=== PATIENT | female | born 1975 | race Caucasian/White ===

== ENCOUNTER 2017-01-20 11:24 | Emergency (ER) | payer BC, MEDICAID, OTHER ==
--- NOTE | 2017-01-20 12:24 | EDM.PDOC ---
ED HPI Trauma - General Chief Complaint: Lower Extremity Injury/Pain Stated Complaint: LT LEG/SWOLLEN/TINGLING Time Seen by Provider: 01/20/17 12:15 Source: Reports: Patient History Limitations: Reports: No limitations - History of Present Illness INITIAL COMMENTS - FREE TEXT/NARRATIVE: This 41 yo female patient reports to the ED with swelling of her right leg. The patient reports she woke up this morning and noticed the swelling. The patient also reports some tingling in her left lower extremity. The patient reports she was on a trip to [place] about 2 weeks ago and does not live a very active life. The patient does report a previous ruptured vein in her left lower leg with a clot. The patient denies any trauma, falls or chronic back issues. Symptom Onset Date: 01/20/17 Occurred When: this morning Occurred Where: home Method of Injury: unknown Severity: moderate Pain/Injury Location: Reports: lower extremity, left Consciousness: Reports: no loss of consciousness Associated Symptoms: Reports: no other symptoms Allergies/ADRs: Allergies promethazine HCl [From Phenergan] Allergy (Verified 03/31/15 19:25) Hives Home Medications: Ambulatory Orders Multivitamin with Minerals [Multiple Vitamin] 1 tab PO DAILY 03/31/15 [ Confirmed 03/31/15] Past Medical History - Past Health History Medical/Surgical History: Denies Medical/Surgical History Social & Family History - Tobacco Use Smoking Status *Q: Never Smoker - Recreational Drug Use Recreational Drug Use: No Review of Systems - Review of Systems Review Of Systems: ROS reveals no pertinent complaints other than HPI. Trauma Exam - Physical Exam Exam: See Below Exam Limited By: No limitations General Appearance: Reports: alert, WD/WN, mild distress Head: Reports: atraumatic, normocephalic Eyes: bilateral eye: EOMI, normal inspection, PERRL Ears: Reports: normal external exam, normal canal, hearing grossly normal, normal TMs Nose: Reports: normal inspection, normal mucousa, no blood Throat/Mouth: Reports: Normal inspection, Normal lips, Normal teeth, Normal gums , Normal oropharynx, Normal voice, No airway compromise Neck: Reports: non-tender, full range of motion, normal alignment, normal inspection Respiratory Exam: Reports: no respiratory distress, lungs clear, normal breath sounds Cardiovascular: Reports: normal peripheral pulses, regular rate, rhythm, no edema, no gallop, no JVD, no murmur, no rub GI/Abdominal: Reports: normal bowel sounds, soft, non tender, no organomegaly, no distention, no abnormal bruit, no mass (Female) Exam: Deferred Rectal (Female) Exam: Deferred Back: Reports: full range of motion, normal inspection, non-tender Extremities: Reports: no evidence of injury, normal range of motion, non-tender , no pedal edema, pelvis stable 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, no motor/sensory deficits, alert , normal mood/affect, oriented x 3 Skin: Reports: Normal color, Warm/dry - Bhupinder Coma Score Best Eye Response ([place]): (4) open spontaneously Best Verbal Response (Bhupinder): (5) oriented Best Motor Response (Bhupinder): (6) obeys commands Bhupinder Total: 15 Course - Vital Signs Last Recorded V/S: Last Vital Signs Temp 36.7 C 01/20/17 12:55 Pulse 102 H 01/20/17 12:55 Resp 18 01/20/17 12:55 BP 145/91 H 01/20/17 12:55 Pulse Ox 99 01/20/17 12:55 - Orders/Labs/Meds Orders: Active Orders 24 hr Category Date Time Status Heparin Sodium/D5W [Heparin 25,000 Units in D5W 500 ML] Med 01/20/17 14:15 Active 25,000 units in 500 ml IV TITRATE Medication Orders Heparin Sodium/Dextrose (Heparin 25,000 Units In D5w 500 Ml) 25,000 units in 500 mls @ 40.823 mls/hr IV TITRATE RAY; 18 UNITS/KG/HR PRN Reason: Protocol Labs: Laboratory Tests 01/20/17 01/20/17 01/20/17 Range/Units 12:25 12:25 12:25 WBC 13.7 H (5.0-10.0) 10^3/uL RBC 5.13 (4.2-5.4) 10^6/uL Hgb 14.8 (12.0-16.0) g/dL Hct 43.9 (37.0-47.0) % MCV 85.6 (80-100) fL MCH 28.8 (27.0-34.0) pg MCHC 33.7 (33.0-35.0) g/dL Plt Count 331 (150-450) 10^3/uL Neut % (Auto) 80.7 H (42.2-75.2) % Lymph % (Auto) 11.7 L (20.5-50.1) % Vance % (Auto) 5.8 (2-8) % Eos % (Auto) 1.5 (1.0-3.0) % Baso % (Auto) 0.3 (0.0-1.0) % PT 9.9 (9.0-12.0) SEC INR 1.0 (0.9-1.2) D-Dimer, Quantitative 4070 H (0-400) ng/mL Sodium 139 (138-146) mmol/L Potassium 4.4 (3.5-4.9) mmol/L Chloride 100 (98-109) mmol/L Carbon Dioxide 26 (24-29) mmol/L Anion Gap 17.4 BUN 13 (8-26) mg/dL Creatinine 0.6 (0.6-1.3) mg/dL Est Cr Clr Drug Dosing 126.99 mL/min Estimated GFR (MDRD) > 60 BUN/Creatinine Ratio 21.66 Glucose 96 (70-105) mg/dL Calcium Total Bilirubin 0.4 (0.2-1.0) mg/dL AST 20 (10-42) IU/L ALT 23 (10-60) IU/L Alkaline Phosphatase 77 (42-121) IU/L Total Protein 7.2 (6.7-8.2) g/dl Albumin 3.9 (3.2-5.5) g/dl Globulin 3.3 Albumin/Globulin Ratio 1.18 Meds: Medications Generic Name Dose Route Start Last Admin Trade Name Freq PRN Reason Stop Dose Admin Heparin Sodium/Dextrose 25,000 units in 500 mls @ 40.823 mls/hr 01/20/17 14: 15 Heparin 25,000 Units In D5w 500 Ml IV TITRATE RAY Protocol 18 UNITS/KG/HR Departure - Departure Time of Disposition: 14:20 Disposition: DC/Tfer to Acute Hospital 02 Condition: fair Clinical Impression: DVT (deep venous thrombosis) Qualifiers: DVT location: lower extremity Affected thrombotic vein of extremity: iliac Laterality: left Chronicity: acute Qualified Code(s): I82.422 - Acute embolism and thrombosis of left iliac vein Forms: Interfacility Transfer EMTALA Care Plan Goals: Discussed the examination, lab and ultrasound results with Dr. Richmond. Dr. Richmond accepted the patient for continued evaluation and management. The patient will be transported by [facility]. - My Orders Last 24 Hours: My Active Orders 01/20/17 14:15 Heparin Sodium/D5W [Heparin 25,000 Units in D5W 500 ML] 25,000 units in 500 ml IV TITRATE - Assessment/Plan Last 24 Hours: My Active Orders 01/20/17 14:15 Heparin Sodium/D5W [Heparin 25,000 Units in D5W 500 ML] 25,000 units in 500 ml IV TITRATE
[2017-01-20 13:28] LABS: CHLORIDE,CL 100 mmol/L (98-109)
[2017-01-20 13:29] LABS: SODIUM,NA 139 mmol/L (138-146)
--- NOTE | 2017-01-20 13:44 | US ---
Clinical history: 41-year-old obese female smoker who had a recent road trip ([place]) 2 weeks ago and presents now with acute onset of left lower extremity swelling this morning. Rule out DVT. Interpretation: Abnormal. Extensive intraluminal echogenic thrombus and noncompressible deep veins of the left groin, thigh an d an knee without augmentation and venous flow in the left popliteal, superficial and common femoral veins. No Porter's cyst. CONCLUSION: Extensive, and significant, deep vein thrombosis left lower extremity.
[2017-01-20] MEDS ORDERED: Heparin Sodium/D5W 25,000 UNITS/500 ML BAG IV SCH (14:15)
[2017-01-20 14:24] VITALS: BP 141/83
[2017-01-20] MEDS ORDERED: Heparin Sodium 5,000 Units/ML Vial ONE (14:25)
== END 2017-01-20 15:17 ==
LOC: DL.ED 11:24
DX: I82.422 Acute embolism and thrombosis of left iliac vein (principal); Z88.8 Allergy status to other drugs, medicaments and biological substances; Z79.899 Other long term (current) drug therapy
CPT/HCPCS: 36415; 80053; 85025; 85379; 85610; 93971; 96365; 99284; J1644